=== PATIENT | male | born 1965 | race Caucasian/White ===

== ENCOUNTER 2017-10-18 18:49 | Observation (INO) ==
[2017-10-18] MEDS ORDERED: 0.9 % Sodium Chloride 1,000 ML ONE (18:54)
[2017-10-18] MEDS ORDERED: 0.9 % Sodium Chloride 1,000 ML IVC ONE (18:54)
--- NOTE | 2017-10-18 19:09 | Emergency Department Note ---
Disposition Clinical Impression: TIA (transient ischemic attack) Hypertension Qualifiers: Hypertension type: unspecified Qualified Code(s): I10 - Essential (primary) hypertension Disposition: Admitted As Inpatient Condition: Good Referrals: NONE,PCP [Primary Care Provider] - Forms: ED Satisfaction Letter Time of Disposition: 23:30 Dizziness HPI - General Chief Complaint: ED Dizziness Stated Complaint: dizziness Time Seen by Provider: 10/18/17 18:54 Source: patient, family Mode of arrival: private vehicle Limitations: physical limitation Nursing Notes Reviewed: Yes Vital Signs Reviewed: Yes - History of Present Illness HPI Narrative: 51-year-old male history of hypertension on Plavix, prior reported intracranial bleed who presents to the ER with a complaint of dizziness, lightheadedness as well as diaphoresis. History is also to a friend. They were out doing manual labor. The friend went to get him something to drink. He came back minutes later at 6:40 PM and found the patient on the ground. States that he was somewhat responsive at that time. He was pale and breaking out into a sweat. He put him in his truck and brought him here for evaluation. Upon arrival the patient is alert and oriented 3 does appear pale and diaphoretic. He voices that he has dizziness as well as lightheadedness. He denies any chest pain or shortness of breath. No headache or visual changes. He states that he believes that 3 vessels ruptured in his brain when he had a stroke previously. This is not like his similar presentation. No other complaints. Pt Subjective Complaint: dizziness, lightheadedness Onset (ago): Just [employer] Timing: sudden onset Description: lightheadedness History of similar episodes: No History of trauma: No Severity: severe Improves with: nothing Worsens with: nothing - Related Data Allergies Allergy/AdvReac Type Severity Reaction Status Date / Time No Known Allergies Allergy Verified 10/18/17 19:30 All systems ED: reviewed and negative except as stated. Constitutional: Denies: fever Cardiovascular: Denies: chest pain Respiratory: Denies: dyspnea Gastrointestinal: Denies: nausea, vomiting Musculoskeletal: Denies: neck pain Neurological: Reports: paresthesias (Left face). Denies: headache Past Medical History - Past Medical History Attestation: Yes The following information was validated with the patient. Source: patient Medical history: Reports: CVA, hypertension Psychiatric history: Reports: no psych history - Social History Smoking Status: Current every day smoker Smokeless Tobacco Status: No Alcohol use: Reports: none Drug use: Reports: none Physical Exam - General Limitations: physical limitation General appearance: other (Diaphoretic, pale) - Eye Eye exam: Present: normal appearance, PERRL, EOMI - ENT ENT exam: normal exam - Neck Neck exam: Present: normal inspection, full ROM - Chest Chest inspection: Present: normal inspection, symmetric chest wall rise - Respiratory Respiratory exam: Present: normal lung sounds bilaterally - Cardiovascular Cardiovascular exam: Present: regular rate, normal rhythm, normal heart sounds - Abdominal Exam Abdominal exam: Present: soft, Non-Tender. Absent: tenderness, distention, rigidity - Extremities Exam Extremities exam: Present: normal inspection, full ROM - Expanded Upper Extremity Exam Shoulder exam: Present: normal inspection, full ROM Arm exam: Present: normal inspection, full ROM Elbow exam: Present: normal inspection, full ROM Forearm/Wrist exam: Present: normal inspection, full ROM Hand exam: Present: normal inspection, full ROM Vascular exam: Normal: radial pulse - Expanded Lower Extremity Exam Hip/Pelvis exam: Present: normal inspection, full ROM Upper leg exam: Present: normal inspection, full ROM Knee exam: Present: normal inspection, full ROM Lower leg exam: Present: normal inspection, full ROM Ankle exam: Present: normal inspection, full ROM Foot/toe exam: Present: normal inspection, full ROM Neurovascular/Tendon exam: Absent: motor deficit, sensory deficit - Neurological Exam Neurological exam: Present: alert, oriented X3, CN II-XII intact (With the exception of paresthesias to the left cranial nerve V distribution). Absent: motor sensory deficit - Expanded Neurological Exam Patient oriented to: Present: person, place, time Speech: Present: fluid speech Cranial nerves: EOM function (II, III, IV, ): Normal, facial sensation (V): Abnormal Left, spinal accessory function (XI): Normal, tongue deviation (XII): Normal Cerebellar function: finger to nose: Normal Motor strength - LUE: 5/5 Motor strength - RUE: 5/5 Motor strength - LLE: 5/5 Motor strength - RLE: 5/5 Sensory exam upper extremity: light touch: Normal Sensory exam lower extremity: light touch: Normal Coma Scale Eye Opening: Spontaneous Coma Scale Motor Response: Obeys Commands Coma Scale Verbal Response: Oriented Coma Scale Total: 15 - Skin Skin exam: Present: warm, dry Course Course Narrative: Patient seen and examined. Vital signs reviewed. He is also noted to have a left facial droop with some left facial paresthesias. Stroke alert called. EKG obtained. Glucose 173 on presentation. Noted to be hypertensive 170/110. Plan for CT imaging, EKG, labs, discussion with stroke neurology - Reevaluation(s) Reevaluation #1: Patient remained hypertensive. Patient given a dose of labetalol. Reevaluation #2: CTA negative. Discussed with patient. He remains hypertensive. Dose of hydralazine ordered. - Consultations Consultation #1: Case discussed with the [facility] stroke neurologist. Unable to use the lower lot. They did recommend TPA if the patient was willing. I discussed this with the patient and he chose to forego TPA and pursue imaging. Neurology recommended an angiogram of the head and neck. Vital Signs Temperature 97.8 F 10/18/17 18:50 Pulse Rate 71 10/18/17 18:50 Respiratory Rate 15 10/18/17 18:50 Blood Pressure 176/112 10/18/17 18:50 O2 Sat by Pulse Oximetry 97 10/18/17 18:50 Temperature 97.8 F 10/18/17 18:50 Pulse Rate 57 10/18/17 23:12 Respiratory Rate 16 10/18/17 23:12 Blood Pressure 161/97 10/18/17 23:12 O2 Sat by Pulse Oximetry 100 10/18/17 23:12 Oxygen Delivery Oxygen Delivery Room Air Dizziness - MDM Narrative Medical decision making narrative: 51-year-old male presents with diaphoresis, altered mental status as well as left facial droop. Abrupt onset of symptoms. Prior history of CVA. Patient was discussed with the [facility] stroke neurology. Given his prior history of bleeding and minimal symptoms shared decision making conversation was had and the patient elected to hold TPA. CT angiogram does not show any focal stenosis or thrombus. She was hypertensive here during his stay in reports compliance with his medications. Imaging labs reviewed. Urine drug screen is positive for amphetamines. Patient is admitted to the hospital service for neurologic workup. - Lab Data Lab results reviewed: Yes I reviewed the patient's lab results. Result diagrams: 10/18/17 18:54 10/18/17 18:54 Lab Results 10/18/17 10/18/17 10/18/17 Range/Units 18:54 18:54 18:54 WBC 10.6 (4.3-11.1) K/mcL RBC 4.82 (4.19-5.50) M/mcL Hgb 15.2 (12.9-16.9) g/dL Hct 43.9 (37.5-50.1) % MCV 91.1 (83.0-100.0) fL MCH 31.5 (28.0-33.3) pg MCHC 34.6 (31.6-35.5) g/dL RDW 13.5 (11.5-14.5) % Plt Count 244 (140-400) K/mcL MPV 9.7 (9.4-12.4) fL Immature Gran % 0.3 (0-4) % Seg Neutrophils % 59.0 % Lymphocytes % 31.0 % Monocytes % 7.9 % Eosinophils % 1.3 % Basophils % 0.5 % Neutrophils # 6.2 (1.6-8.9) K/mcL Lymphocytes # 3.3 (0.6-4.6) K/mcL Monocytes # 0.8 (0.0-1.3) K/mcL Eosinophils # 0.1 (0.0-0.6) K/mcL Basophils # 0.1 (0.0-0.2) K/mcL PT 11.5 (9.4-12.1) Seconds INR 1.0 APTT 27.9 (26.0-36.0) Seconds Sodium 139 (136-145) mEq/L Potassium 3.7 (3.5-5.1) mEq/L Chloride 108 H (98-107) mEq/L Carbon Dioxide 25 (23-29) mEq/L BUN 13 (6-20) mg/dL Creatinine 0.88 (0.70-1.30) mg/dL Est GFR ( Amer) > 60 (> 60) Est GFR (Non-Af Amer) > 60 (> 60) BUN/Creatinine Ratio 15 (6-26) Glucose 139 H (70-105) mg/dL Calculated Osmolality 290 (280-300) Calcium 8.7 (8.6-10.3) mg/dL Total Bilirubin 0.6 (0.3-1.0) mg/dL Direct Bilirubin 0.1 (0.0-0.2) mg/dL Indirect Bilirubin 0.5 (0.0-1.2) mg/dL AST 11 L (13-39) Units/L ALT 9 (7-52) Units/L Alkaline Phosphatase 87 (34-104) Units/L Troponin I < 0.03 (< 0.04) ng/mL Serum Total Protein 6.0 L (6.4-8.9) g/dL Albumin 4.0 (3.5-5.7) g/dL Globulin 2.0 L (2.4-3.5) g/dL Albumin/Globulin Ratio 2.0 (1.1-2.2) Urine Color (Yellow) Urine Clarity (Clear) Urine pH (5.0-8.0) pH Units Ur Specific [place] (1.010-1.025) Urine Protein (Neg-Trace) mg/dL Urine Glucose (UA) (Normal) mg/dL Urine Ketones (Negative) mg/dL Urine Blood (Negative) Urine Nitrite (Negative) Urine Bilirubin (Negative) Urine Urobilinogen (Normal) mg/dL Ur Leukocyte Esterase (Negative) Ur Culture Indicated? (NO) Urine Opiates Screen (Yzuwea=031) ng/mL Ur Barbiturates Screen (Zmxpfv=008) ng/mL Ur Phencyclidine Scrn (Cutoff=25) ng/mL Ur Amphetamines Screen (Tpnqqa=9350) ng/mL U Benzodiazepines Scrn (Uqmvhl=180) ng/mL Urine Cocaine Screen (Cutoff= 300) ng/mL U Marijuana (THC) Screen (Cutoff = 50) ng/mL Ur Drug Screen Interp Ethyl Alcohol (Less than 10) mg/dL 10/18/17 10/18/17 10/18/17 Range/Units 18:59 22:22 22:22 WBC (4.3-11.1) K/mcL RBC (4.19-5.50) M/mcL Hgb (12.9-16.9) g/dL Hct (37.5-50.1) % MCV (83.0-100.0) fL MCH (28.0-33.3) pg MCHC (31.6-35.5) g/dL RDW (11.5-14.5) % Plt Count (140-400) K/mcL MPV (9.4-12.4) fL Immature Gran % (0-4) % Seg Neutrophils % % Lymphocytes % % Monocytes % % Eosinophils % % Basophils % % Neutrophils # (1.6-8.9) K/mcL Lymphocytes # (0.6-4.6) K/mcL Monocytes # (0.0-1.3) K/mcL Eosinophils # (0.0-0.6) K/mcL Basophils # (0.0-0.2) K/mcL PT (9.4-12.1) Seconds INR APTT (26.0-36.0) Seconds Sodium (136-145) mEq/L Potassium (3.5-5.1) mEq/L Chloride (98-107) mEq/L Carbon Dioxide (23-29) mEq/L BUN (6-20) mg/dL Creatinine (0.70-1.30) mg/dL Est GFR ( Amer) (> 60) Est GFR (Non-Af Amer) (> 60) BUN/Creatinine Ratio (6-26) Glucose (70-105) mg/dL Calculated Osmolality (280-300) Calcium (8.6-10.3) mg/dL Total Bilirubin (0.3-1.0) mg/dL Direct Bilirubin (0.0-0.2) mg/dL Indirect Bilirubin (0.0-1.2) mg/dL AST (13-39) Units/L ALT (7-52) Units/L Alkaline Phosphatase (34-104) Units/L Troponin I (< 0.04) ng/mL Serum Total Protein (6.4-8.9) g/dL Albumin (3.5-5.7) g/dL Globulin (2.4-3.5) g/dL Albumin/Globulin Ratio (1.1-2.2) Urine Color Yellow (Yellow) Urine Clarity Clear (Clear) Urine pH 7.5 (5.0-8.0) pH Units Ur Specific [place] > 1.030 H (1.010-1.025) Urine Protein Negative (Neg-Trace) mg/dL Urine Glucose (UA) Normal (Normal) mg/dL Urine Ketones Trace H (Negative) mg/dL Urine Blood Negative (Negative) Urine Nitrite Negative (Negative) Urine Bilirubin Negative (Negative) Urine Urobilinogen Normal (Normal) mg/dL Ur Leukocyte Esterase Negative (Negative) Ur Culture Indicated? NO (NO) Urine Opiates Screen Negative (Cfwcon=034) ng/mL Ur Barbiturates Screen Negative (Pfbblr=796) ng/mL Ur Phencyclidine Scrn Negative (Cutoff=25) ng/mL Ur Amphetamines Screen Positive H (Owivns=7889) ng/mL U Benzodiazepines Scrn Negative (Wxndie=745) ng/mL Urine Cocaine Screen Negative (Cutoff= 300) ng/mL U Marijuana (THC) Screen Negative (Cutoff = 50) ng/mL Ur Drug Screen Interp See Below Ethyl Alcohol < 10 (Less than 10) mg/dL - Radiology Data Radiology results reviewed: Yes I reviewed the patient's radiology results. Chest X-Ray 10/18/17 18:54 IMPRESSION: No acute process. D/ / Robbi Garcia MD / Robbi Garcia MD Interpreting Provider: Robbi Garcia MD Head CT 10/18/17 18:59 IMPRESSION: 1. No acute intracranial abnormality. Critical results were called by Dr. Tushar Arce MD to Luis Braga on 10/18/2017 at 19:22. D/ / Tushar Arce MD / Tushar Arce MD Interpreting Provider: Tushar Arce MD Head CTA 10/18/17 19:31 IMPRESSION: No flow-limiting stenosis of the cervical carotid or vertebral arteries. No intracranial flow-limiting stenosis. D/ / 10/18/2017 20:52:10 Alirio Coates MD / audrey Interpreting Provider: Alirio Coates MD Neck CTA 10/18/17 19:31 IMPRESSION: No flow-limiting stenosis of the cervical carotid or vertebral arteries. No intracranial flow-limiting stenosis. D/ / 10/18/2017 20:52:10 Alirio Coates MD / audrey Interpreting Provider: Alirio Coates MD - EKG Data EKG attestation: Yes I reviewed and interpreted this EKG. EKG results narrative: EKG demonstrates normal sinus rhythm rate 66 bpm. Normal axis. Normal intervals. Normal R-wave progression. There are larger T waves in the anterior and lateral leads. No gross ST elevation or depressions. No acute ischemic findings. Evelia - Evelia Situation: Demographics, MOA Background: Presenting Complaint, Relevant PMH, Meds, & Allergies Assessment: Vital Signs, Course and respsone to treatment, Exam Concerns, Patient/Family Expectation, Pertinant Lab Results Recommendation: Barrier(s) to disposition, Recommendation based on pending studies, treatments, or consults Evelia Report Given to: Dr. Laverne Altamirano Repor Time: 23:29
[2017-10-18 19:28] LABS: Basophils # 0.1 K/mcL (0.0-0.2); Basophils % 0.5 %; Eosinophils # 0.1 K/mcL (0.0-0.6); Eosinophils % 1.3 %; Hematocrit 43.9 % (37.5-50.1); Hemoglobin 15.2 g/dL (12.9-16.9); Immature Granulocytes % 0.3 % (0-4); Lymphocytes # 3.3 K/mcL (0.6-4.6); Mean Corpuscular HGB Conc 34.6 g/dL (31.6-35.5); Mean Corpuscular Hemoglobin 31.5 pg (28.0-33.3); Mean Corpuscular Volume 91.1 fL (83.0-100.0); Mean Platelet Volume 9.7 fL (9.4-12.4); Monocytes # 0.8 K/mcL (0.0-1.3); Monocytes % 7.9 %; Neutrophils # 6.2 K/mcL (1.6-8.9); Platelet Count 244 K/mcL (140-400); Red Blood Count 4.82 M/mcL (4.19-5.50); Red Cell Distribution Width 13.5 % (11.5-14.5)
[2017-10-18] MEDS ORDERED: Isovue-370 500 ML INFUS..BTL IV ONE (19:31)
[2017-10-18 19:33] LABS: Prothrombin Time 11.5 Seconds (9.4-12.1)
[2017-10-18 19:36] LABS: Activated Partial Thrombo Time 27.9 Seconds (26.0-36.0)
[2017-10-18 19:49] LABS: BUN/Creatinine Ratio 15 (6-26); Blood Urea Nitrogen 13 mg/dL (6-20); Calcium 8.7 mg/dL (8.6-10.3); Carbon Dioxide 25 mEq/L (23-29); Chloride 108 mEq/L (98-107); Glucose 139 mg/dL (70-105); Osmolality,Calculated 290 (280-300); Potassium 3.7 mEq/L (3.5-5.1); Sodium 139 mEq/L (136-145); eGFR For Non-African Americans > 60 (> 60)
[2017-10-18 19:50] LABS: Troponin I < 0.03 ng/mL (< 0.04)
[2017-10-18 21:48] LABS: Alanine Aminotransferase 9 Units/L (7-52); Alkaline Phosphatase 87 Units/L (34-104); Aspartate Amino Transferase 11 Units/L (13-39); Bilirubin,Direct 0.1 mg/dL (0.0-0.2); Bilirubin,Indirect 0.5 mg/dL (0.0-1.2); Bilirubin,Total 0.6 mg/dL (0.3-1.0)
[2017-10-18] MEDS ORDERED: *HR* Labetalol 20 MG/4 ML SYRINGE IVP ONE (22:18)
--- NOTE | 2017-10-18 22:26 | Emergency Department Note ---
Disposition Clinical Impression: TIA (transient ischemic attack), Hypertension Disposition: Admitted As Inpatient Condition: Good Referrals: NONE,PCP [Primary Care Provider] - Forms: ED Satisfaction Letter General Adult HPI - General Chief complaint: ED Dizziness Stated complaint: dizziness Time Seen by Provider: 10/18/17 18:54 Source: patient, family Mode of arrival: private vehicle Limitations: physical limitation Nursing Notes Reviewed: Yes Vital Signs Reviewed: Yes - History of Present Illness Pain Scale: 0 - Related Data Allergies Allergy/AdvReac Type Severity Reaction Status Date / Time No Known Allergies Allergy Verified 10/18/17 19:30 Constitutional: Denies: fever Cardiovascular: Denies: chest pain Respiratory: Denies: dyspnea Gastrointestinal: Denies: nausea, vomiting Musculoskeletal: Denies: neck pain Neurological: Reports: paresthesias (Left face). Denies: headache Past Medical History - Past Medical History Medical history: Reports: CVA, hypertension Psychiatric history: Reports: no psych history - Social History Smoking Status: Current every day smoker Smokeless Tobacco Status: No Alcohol use: Reports: none Drug use: Reports: none Physical Exam - General Limitations: physical limitation General appearance: other (Diaphoretic, pale) Course Vital Signs Temperature 97.8 F 10/18/17 18:50 Pulse Rate 71 10/18/17 18:50 Respiratory Rate 15 10/18/17 18:50 Blood Pressure 176/112 10/18/17 18:50 O2 Sat by Pulse Oximetry 97 10/18/17 18:50 Temperature 97.8 F 10/18/17 18:50 Pulse Rate 57 10/18/17 23:12 Respiratory Rate 16 10/18/17 23:12 Blood Pressure 161/97 10/18/17 23:12 O2 Sat by Pulse Oximetry 100 10/18/17 23:12 Oxygen Delivery Oxygen Delivery Room Air Medical Decision Making - Lab Data Lab results reviewed: Yes I reviewed the patient's lab results. Result diagrams: 10/18/17 18:54 10/18/17 18:54 Lab Results 10/18/17 10/18/17 10/18/17 Range/Units 18:54 18:54 18:54 WBC 10.6 (4.3-11.1) K/mcL RBC 4.82 (4.19-5.50) M/mcL Hgb 15.2 (12.9-16.9) g/dL Hct 43.9 (37.5-50.1) % MCV 91.1 (83.0-100.0) fL MCH 31.5 (28.0-33.3) pg MCHC 34.6 (31.6-35.5) g/dL RDW 13.5 (11.5-14.5) % Plt Count 244 (140-400) K/mcL MPV 9.7 (9.4-12.4) fL Immature Gran % 0.3 (0-4) % Seg Neutrophils % 59.0 % Lymphocytes % 31.0 % Monocytes % 7.9 % Eosinophils % 1.3 % Basophils % 0.5 % Neutrophils # 6.2 (1.6-8.9) K/mcL Lymphocytes # 3.3 (0.6-4.6) K/mcL Monocytes # 0.8 (0.0-1.3) K/mcL Eosinophils # 0.1 (0.0-0.6) K/mcL Basophils # 0.1 (0.0-0.2) K/mcL PT 11.5 (9.4-12.1) Seconds INR 1.0 APTT 27.9 (26.0-36.0) Seconds Sodium 139 (136-145) mEq/L Potassium 3.7 (3.5-5.1) mEq/L Chloride 108 H (98-107) mEq/L Carbon Dioxide 25 (23-29) mEq/L BUN 13 (6-20) mg/dL Creatinine 0.88 (0.70-1.30) mg/dL Est GFR ( Amer) > 60 (> 60) Est GFR (Non-Af Amer) > 60 (> 60) BUN/Creatinine Ratio 15 (6-26) Glucose 139 H (70-105) mg/dL Calculated Osmolality 290 (280-300) Calcium 8.7 (8.6-10.3) mg/dL Total Bilirubin 0.6 (0.3-1.0) mg/dL Direct Bilirubin 0.1 (0.0-0.2) mg/dL Indirect Bilirubin 0.5 (0.0-1.2) mg/dL AST 11 L (13-39) Units/L ALT 9 (7-52) Units/L Alkaline Phosphatase 87 (34-104) Units/L Troponin I < 0.03 (< 0.04) ng/mL Serum Total Protein 6.0 L (6.4-8.9) g/dL Albumin 4.0 (3.5-5.7) g/dL Globulin 2.0 L (2.4-3.5) g/dL Albumin/Globulin Ratio 2.0 (1.1-2.2) Urine Color (Yellow) Urine Clarity (Clear) Urine pH (5.0-8.0) pH Units Ur Specific Gould (1.010-1.025) Urine Protein (Neg-Trace) mg/dL Urine Glucose (UA) (Normal) mg/dL Urine Ketones (Negative) mg/dL Urine Blood (Negative) Urine Nitrite (Negative) Urine Bilirubin (Negative) Urine Urobilinogen (Normal) mg/dL Ur Leukocyte Esterase (Negative) Ur Culture Indicated? (NO) Urine Opiates Screen (Qhkvsi=484) ng/mL Ur Barbiturates Screen (Iktjtb=107) ng/mL Ur Phencyclidine Scrn (Cutoff=25) ng/mL Ur Amphetamines Screen (Hobdjk=2507) ng/mL U Benzodiazepines Scrn (Afjnen=719) ng/mL Urine Cocaine Screen (Cutoff= 300) ng/mL U Marijuana (THC) Screen (Cutoff = 50) ng/mL Ur Drug Screen Interp Ethyl Alcohol (Less than 10) mg/dL 10/18/17 10/18/17 10/18/17 Range/Units 18:59 22:22 22:22 WBC (4.3-11.1) K/mcL RBC (4.19-5.50) M/mcL Hgb (12.9-16.9) g/dL Hct (37.5-50.1) % MCV (83.0-100.0) fL MCH (28.0-33.3) pg MCHC (31.6-35.5) g/dL RDW (11.5-14.5) % Plt Count (140-400) K/mcL MPV (9.4-12.4) fL Immature Gran % (0-4) % Seg Neutrophils % % Lymphocytes % % Monocytes % % Eosinophils % % Basophils % % Neutrophils # (1.6-8.9) K/mcL Lymphocytes # (0.6-4.6) K/mcL Monocytes # (0.0-1.3) K/mcL Eosinophils # (0.0-0.6) K/mcL Basophils # (0.0-0.2) K/mcL PT (9.4-12.1) Seconds INR APTT (26.0-36.0) Seconds Sodium (136-145) mEq/L Potassium (3.5-5.1) mEq/L Chloride (98-107) mEq/L Carbon Dioxide (23-29) mEq/L BUN (6-20) mg/dL Creatinine (0.70-1.30) mg/dL Est GFR ( Amer) (> 60) Est GFR (Non-Af Amer) (> 60) BUN/Creatinine Ratio (6-26) Glucose (70-105) mg/dL Calculated Osmolality (280-300) Calcium (8.6-10.3) mg/dL Total Bilirubin (0.3-1.0) mg/dL Direct Bilirubin (0.0-0.2) mg/dL Indirect Bilirubin (0.0-1.2) mg/dL AST (13-39) Units/L ALT (7-52) Units/L Alkaline Phosphatase (34-104) Units/L Troponin I (< 0.04) ng/mL Serum Total Protein (6.4-8.9) g/dL Albumin (3.5-5.7) g/dL Globulin (2.4-3.5) g/dL Albumin/Globulin Ratio (1.1-2.2) Urine Color Yellow (Yellow) Urine Clarity Clear (Clear) Urine pH 7.5 (5.0-8.0) pH Units Ur Specific [place] > 1.030 H (1.010-1.025) Urine Protein Negative (Neg-Trace) mg/dL Urine Glucose (UA) Normal (Normal) mg/dL Urine Ketones Trace H (Negative) mg/dL Urine Blood Negative (Negative) Urine Nitrite Negative (Negative) Urine Bilirubin Negative (Negative) Urine Urobilinogen Normal (Normal) mg/dL Ur Leukocyte Esterase Negative (Negative) Ur Culture Indicated? NO (NO) Urine Opiates Screen Negative (Nxneof=072) ng/mL Ur Barbiturates Screen Negative (Xrcucb=161) ng/mL Ur Phencyclidine Scrn Negative (Cutoff=25) ng/mL Ur Amphetamines Screen Positive H (Ojpali=9761) ng/mL U Benzodiazepines Scrn Negative (Tdivvz=136) ng/mL Urine Cocaine Screen Negative (Cutoff= 300) ng/mL U Marijuana (THC) Screen Negative (Cutoff = 50) ng/mL Ur Drug Screen Interp See Below Ethyl Alcohol < 10 (Less than 10) mg/dL - Radiology Data Radiology results reviewed: Yes I reviewed the patient's radiology results. Chest X-Ray 10/18/17 18:54 IMPRESSION: No acute process. D/ / Robbi Garcia MD / Robbi Garcia MD Interpreting Provider: Robbi Garcia MD Head CT 10/18/17 18:59 IMPRESSION: 1. No acute intracranial abnormality. Critical results were called by Dr. Tushar Arce MD to Luis Braga on 10/18/2017 at 19:22. D/ / Tushar Arce MD / Tushar Arce MD Interpreting Provider: Tushar Arce MD Head CTA 10/18/17 19:31 IMPRESSION: No flow-limiting stenosis of the cervical carotid or vertebral arteries. No intracranial flow-limiting stenosis. D/ / 10/18/2017 20:52:10 Alirio Coates MD / audrey Interpreting Provider: Alirio Coates MD Neck CTA 10/18/17 19:31 IMPRESSION: No flow-limiting stenosis of the cervical carotid or vertebral arteries. No intracranial flow-limiting stenosis. D/ / 10/18/2017 20:52:10 Alirio Coates MD / audrey Interpreting Provider: Alirio Coates MD - EKG Data EKG #1 EKG attestation: Yes I reviewed and interpreted this EKG. EKG results narrative: EKG shows a normal sinus rhythm with ventricular rate is 66. No ST segment elevation or depression. No arrhythmia or ectopy. Normal EKG. Critical Care Time Critical Care Time: Yes Total Critical Care Time: 40 Attestation: Critical care performed: Time is exclusive of separately billable procedures. Time includes: direct patient care, patient reassessment, coordination of patient care, interpretation of data (laboratory data, radiology data, and respiratory data), review of patient's medical records, medical consultation and documentation of patient care. Procedures included in critical care time: Procedures excluded from critical care time: Attestation Statement - Attestation Attestation: I, Haris Sheppard MD, personally evaluated this patient and discussed their management with the resident physician. I reviewed the resident's note and agree with the documented findings, medical decision making, and plan of care. 51-year-old male who presents to the emergency department by private vehicle with a complaint of altered mental status. Patient's friend brought him in reported that he had been with him for about the last hour and a half the patient was fine. They were doing some work outside and the friend left to go get them something to drink and was gone for about 5 minutes. When he came back he states the patient was on the ground and was unresponsive. He had to shake him to arouse him. The patient then was very drowsy and seemed disoriented. He was very pale and diaphoretic. No complaints. Patient has a history of hypertension. His friend checked his blood pressure and it was in the range of 153/105. Patient has a prior history of a stroke 3 years ago which he states that his only symptoms with the stroke was a headache. No weakness or numbness of the extremities. He reports that he had bleeding from 3 blood vessels that ruptured. He denies headache at this time. He denies chest pain or shortness of breath or palpitations. He does complain that the left side of his face feels a little numb and tingly. On examination patient is a well-developed well-nourished male. He is pale and diaphoretic. Somewhat drowsy but responds to verbal stimuli. There is mild left facial droop but no other focal neurological findings. Equal field appraiser strength bilaterally. Normal speech. Breath sounds are clear and equal bilaterally. Heart regular rate and rhythm. Abdomen soft and nontender with normal bowel sounds. A stroke alert was called and patient had an emergency head CT which was negative. Dr. Braga discussed the case with the [facility] stroke neurologist on the phone as our stroke robot is currently not functioning. She felt that it would be okay for the patient to get TPA and the decision was up to the patient. Patient declined. A CTA of the head and neck was obtained and negative. Patient remained stable throughout his stay in the emergency department and vital signs remained stable other than hypertension. The hospitalist, Dr. Galloway, was consulted and accepted admission of the patient.
[2017-10-18 22:29] LABS: Bilirubin,Urine Negative (Negative); Blood,Urine Negative (Negative); Clarity,Urine Clear (Clear); Color,Urine Yellow (Yellow); Glucose,Urine (UA) Normal (Normal); Ketones,Urine Trace mg/dL (Negative); Leukocyte Esterase,Urine Negative (Negative); Nitrite,Urine Negative (Negative); PH,Urine 7.5 pH Units (5.0-8.0); Protein,Urine Negative (Neg-Trace); Specific Gravity,Urine > 1.030 (1.010-1.025); Urobilinogen,Urine Normal (Normal)
[2017-10-18 22:46] LABS: Amphetamine Screen,Urine Positive ng/mL (Cutoff=1000); Barbiturate Screen,Urine Negative ng/mL (Cutoff=200); Benzodiazepines Screen,Urine Negative ng/mL (Cutoff=200); Cannabinoid Screen,Urine Negative ng/mL (Cutoff = 50); Cocaine Screen,Urine Negative ng/mL (Cutoff= 300); Opiate Screen,Urine Negative ng/mL (Cutoff=300); Phencyclidine Screen,Urine Negative ng/mL (Cutoff=25)
[2017-10-18] MEDS ORDERED: Aspirin 81 MG TAB.CHEW PO ONE (23:18)
[2017-10-18] MEDS ORDERED: Naloxone 0.4 MG/ML INJ IVP PRN (23:35)
[2017-10-19 00:34] LABS: Chol/HDL Ratio 1.9 (0-4.9); Cholesterol 83 mg/dL (< 200); HDL Cholesterol 44 mg/dL (40-59); LDL Cholesterol,Calculated 26 mg/dL (0-99); Triglycerides 65 mg/dL (< 150)
--- NOTE | 2017-10-19 00:36 | Internal Med History&Physical ---
Date of Encounter: 10/19/17 Time of Encounter: 12:25 Internal Medicine - H&P: HPI Chief complaint: Syncopal episode today followed by weakness and facial droop History of present illness: Mr. Loza is a 51 year old male with pmh of CVA presenting with complaints of syncopal episode today followed by a left facial droop and left arm numbness and tingling. 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 When he came to, he was pale, diaphoretic and seemed very diaphoretic and drowsy. He was also noted to have a left facial drop and tingling of his left arm that have both since resolved. This history was obtained from ER records. On interviewing patient, he denies passing out, only admits to having been dizzy today. Also admits to the left facial droop and numbness. Denies any other acute symptoms such as fevers, chills or chest pain. In the ER, stroke alert was called and [facility] stroke neurologist was consulted who recommended TPA but patient declined. CTA head and neck all came back negative. Patient still complains of dizziness and will be admitted for further management Past Med Surg Social Fam HX - Past Medical History Medical history: CVA, hypertension Psychiatric history: no psych history - Social History Smoking Status: Current every day smoker Smokeless Tobacco Status: No Alcohol use: none Drug use: none Internal Medicine - H&P: Meds 3 Allergy/AdvReac Type Severity Reaction Status Date / Time No Known Allergies Allergy Verified 10/18/17 19:30 All Systems PM: A 10-system review of systems was performed and is negative for pertinent findings except as documented above in the HPI. - Constitutional Constitutional: no chills, no fever(s), no night sweats - EENT Eyes: no change in vision, no discharge, no pain, no photophobia Ears: no ear discharge, no ear pain, no tinnitus Nose, mouth and throat: no dysphagia, no nasal discharge, no neck pain, no sore throat - Cardiovascular Cardiovascular ROS IM: lightheadedness, no chest pain, no diaphoresis, no dyspnea, no palpitations, no syncope - Respiratory Respiratory: no cough, no dyspnea, no wheezing, no excessive phlegm production - Gastrointestinal Gastrointestinal: no abdominal pain, no diarrhea, no hematemesis, no hematochezia, no melena, no nausea, no vomiting - Musculoskeletal Musculoskeletal ROS IM: no numbness, no tingling - Integumentary Integumentary IM: no rash, no unusual bruising - Neurological Neurological ROS: confusion, tingling, no convulsions, no focal weakness, no numbness, no tremor(s) Additional comments: facial droop - Hematologic/Lymphatic Hematologic/Lymphatic: no easy bruising - Constitutional Vitals: Temp Pulse Resp BP Pulse Ox 97.8 F 59 16 166/111 100 10/18/17 18:50 10/18/17 23:37 10/18/17 23:37 10/18/17 23:37 10/18/17 23:12 - Head Head exam: Present: atraumatic, normocephalic - Eye Eye exam: Present: PERRL, conjuntiva pink, sclera anicteric Pupils: Present: PERRL - Neck Neck exam general surgery: Present: supple, trachea midline. Absent: lymphadenopathy - Respiratory Respiratory exam: Present: CTAB. Absent: accessory muscle use, rales, rhonchi, wheezes - Cardiovascular Cardiovascular exam: Present: RRR, +S1, +S2. Absent: diastolic murmur, gallop, rubs, systolic murmur - GI/Abdominal GI/Abdominal exam: Present: normal bowel sounds, soft, no peritoneal signs. Absent: distended, tenderness - Extremities Exam Extremities exam: Present: warm, radial pulses palpable and symmetrical. Absent : calf tenderness, cyanotic, pedal edema - Neurological Exam Neurological exam: Present: CN II-XII intact, oriented X3, no focal deficits. Absent: pronater drift, facial droop, speech deficit - Skin Skin exam: Present: dry, intact Internal Med - H&P Results - Labs CBC & Chem 7: 10/19/17 00:43 10/19/17 00:43 - Assessment and plan (1) TIA (transient ischemic attack) Current Visit: Yes Status: Acute Assessment and plan: TIA r/o acute CVA. Patient had a syncopal episode accompanied by neuro deficits post syncope with reported facial droop and left arm numbness and tingling which have since resolved. Pt also reports a history of CVA. Started on aspirin CT angio head and neck negative. Obtain 2d echo. Will give IV fluids (2) Syncope and collapse Current Visit: Yes Status: Acute Assessment and plan: Possibly vasovagal vs dehydration. Will give IV fluids (3) Hypertension Current Visit: Yes Status: Acute Assessment and plan: Hydralazine prn. consider adding amlodipine to regimen in am if BP remains persistently elevated Qualifiers: Hypertension type: essential hypertension Qualified Code(s): I10 - Essential (primary) hypertension (4) CVA (cerebral vascular accident) Current Visit: Yes Status: Acute Assessment and plan: [place] of CVA. Continue aspirin Qualifiers: Qualified Code(s): I63.9 - Cerebral infarction, unspecified (5) Amphetamine abuse Current Visit: Yes Status: Acute Assessment and plan: Query amphetamine abuse. Patient denies any illicit drugs, however utox positive for amphetamines. Supportive management (6) DVT prophylaxis Current Visit: Yes Status: Acute Assessment and plan: heparin sc - Time Spent With Patient Total time spent is greater than 50% in coordination of care (as documented) at patient's floor/unit and/or counseling patient:
[2017-10-19] MEDS ORDERED: Ondansetron 4 MG/2 ML VIAL IVP PRN (00:43)
[2017-10-19] MEDS: 0.9 % Sodium Chloride 1,000 ML IVC SCH ×2 (00:43→16:49)
[2017-10-19 00:53] LABS: Basophils % 0.3 %; Eosinophils % 0.1 %; Hematocrit 42.2 % (37.5-50.1); Hemoglobin 14.2 g/dL (12.9-16.9); Immature Granulocytes % 0.3 % (0-4); Lymphocytes # 1.5 K/mcL (0.6-4.6); Lymphocytes % 13.2 %; Mean Corpuscular HGB Conc 33.6 g/dL (31.6-35.5); Mean Corpuscular Hemoglobin 30.4 pg (28.0-33.3); Mean Corpuscular Volume 90.4 fL (83.0-100.0); Mean Platelet Volume 9.9 fL (9.4-12.4); Monocytes # 0.3 K/mcL (0.0-1.3); Monocytes % 2.2 %; Neutrophils # 9.8 K/mcL (1.6-8.9); Platelet Count 217 K/mcL (140-400); Red Blood Count 4.67 M/mcL (4.19-5.50); Red Cell Distribution Width 13.7 % (11.5-14.5); Segmented Neutrophils % 83.9 %
[2017-10-19 01:18] LABS: BUN/Creatinine Ratio 15 (6-26); Blood Urea Nitrogen 12 mg/dL (6-20); Calcium 8.7 mg/dL (8.6-10.3); Carbon Dioxide 24 mEq/L (23-29); Chloride 109 mEq/L (98-107); Glucose 137 mg/dL (70-105); Magnesium 1.8 mg/dL (1.6-2.6); Osmolality,Calculated 288 (280-300); Phosphorous 1.7 mg/dL (2.7-4.5); Potassium 3.8 mEq/L (3.5-5.1); Sodium 138 mEq/L (136-145); eGFR For Non-African Americans > 60 (> 60)
[2017-10-19] MEDS: *HR* Heparin 5,000 UNIT/ML VIAL SQ SCH ×2 (05:48→16:50)
[2017-10-19] MEDS: Aspirin 81 MG TAB.CHEW PO SCH (07:42)
--- NOTE | 2017-10-19 12:47 | Electrocardiograph Report ---
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
--- NOTE | 2017-10-19 16:19 | Event Note ---
Date of Encounter: 10/19/17 Time of Encounter: 16:09 Patient was seen earlier in the morning by hospitalist. 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 He was pale and diaphoretic and very drowsy. He was brought to the emergency room a stroke alert was called and [facility] stroke neurologist is consulted who recommended TPA the patient refused. CTA head neck AND back negative. Patient still complains of dizziness. MRI was ordered which did reveal acute infarct within the left dorsal eran no mass effect or midline shift as well as a prior lacunar infarct in the right periventricular white matter and the bilateral thalami. Echo completed- LVEF 60%. Mild left ventricular diastolic dysfunction. Normal right ventricular structure and function. Mild mitral regurgitation. Mild tricuspid regurgitation. No pulmonary hypertension. No evidence of PFO with agitated saline contrast. Neurology has been consulted. Aspirin and statin
--- NOTE | 2017-10-19 20:13 | Neurology - Consult Note ---
Date of Encounter: 10/19/17 Time of Encounter: 20:04 Assessment and Plan (1) Brainstem infarct, acute Current Visit: Yes Status: Acute Unfortunately Mr. Loza has experienced an acute pontine infarct. This infarct is definitely the result of a small vessel event caused by his severe hypertension. He is quite possible that the amphetamines contributed to this hypertension. He has had other previous cerebrovascular events due to hypertension, and was previously placed on medications to control this. He was also placed on antiplatelet therapy previously. He consciously made and ill- advised, autonomous decision to stop taking his blood pressure medication and his aspirin therapy. I did in fact call these matters to his attention. I warned him of the dangers of noncompliance which in his case could in fact lead to disability or even . I recommend normalizing his blood pressure tomorrow and restarting his aspirin therapy. Hopefully he will reestablish with a primary care provider and remain compliant. He will likely need some type of physical therapy and occupational therapy to strengthen his left arm and become more efficient with using it. Statin therapy will also be indicated here. I will reevaluate him at your request. History of Present Illness HPI: The chart was reviewed, the patient was seen and examined. Mr. Loza is a 51 year old male who is being seen for neurologic consultation secondary to an acute pontine infarct. Apparently he was fully engaged in physical work outside on the day of admission. Apparently he was with a friend who left to go get something to drink and came back about 5 minutes later to find Ken dumont. He states he did not pass out however he was dizzy and had difficulty with his balance. He did have some visual changes and admits to diplopia which is resolved. Apparently when he arrived here at the [facility] did an assessment in one to give him TPA however he declined. His blood pressure was 192/114 upon admission. He did have an MRI which does reveal an acute pontine infarct and several old right sided lacunar infarcts. Family he was hospitalized here a few years ago when he states like to care of him then for right sided stroke with left-sided weakness. He tells me that the weakness on the left side never completely resolved from the previous event. He also informs me that he was placed on antihypertensives and aspirin however for other reason he quit taking his medications about a year or so ago. He still smokes cigarettes. CTA scan of the brain and neck were both negative. Echocardiogram was negative as well. However, urine drug screen was positive for amphetamines which is of course very concerning and quite possibly the reason for this event. Past Med Surg Social Fam HX - Past Medical History Medical history: CVA, hypertension Psychiatric history: no psych history - Social History Smoking Status: Current every day smoker Smokeless Tobacco Status: No Alcohol use: none Drug use: none - Family History Mother Hx Family Cardiac Disorders: Yes (HTN) Medications and Allergies 3 Allergy/AdvReac Type Severity Reaction Status Date / Time No Known Allergies Allergy Verified 10/18/17 19:30 All Systems: The remainder of the systems were reviewed and are negative Review of Systems: The balance of the systems review is negative. Physical Examination - Vital Signs Vital Signs: Initial Vital Signs Temp Pulse Resp BP Pulse Ox 97.8 F 71 15 176/112 97 10/18/17 18:50 10/18/17 18:50 10/18/17 18:50 10/18/17 18:50 10/18/17 18:50 - Neurologic Detailed motor examination: other (Normal strength of the right upper and right lower extremity. There is 4/5 strength of the left deltoid, biceps, triceps, project safety manager strength, hip strength, quadriceps and hamstrings, anterior tibialis, gastrocnemius. There is also clumsiness of the left upper extremity with finger to nose testing.) Detailed sensory examination: other (There is hypoesthesia of the left face and left arm and left leg.) Reflex and gait examination: other (Deep tendon reflexes are 2 of the left upper and lower extremity and one of the right upper and lower extremities.) Mental Status Examination: awake, alert, oriented to person, oriented to place, oriented to time, follows commands appropriately, answers questions appropriately, no agnosia, no aphasia, no aproxia Cranial nerve examination: PERRL, EOMI, visual gaviria intact, corneal reflexes brisk symmetrically, mastication intact, no facial asymmetry is present, no dysarthria, hearing is intact symmetrically, tongue protrudes midline Ataxia: left upper extremity Results - Laboratory Findings CBC and BMP: 10/19/17 00:43 10/19/17 00:43 Abnormal lab findings: Abnormal lab results WBC 11.7 K/mcL (4.3-11.1) H 10/19/17 00:43 Neutrophils # 9.8 K/mcL (1.6-8.9) H 10/19/17 00:43 Chloride 109 mEq/L (98-107) H 10/19/17 00:43 Glucose 137 mg/dL (70-105) H 10/19/17 00:43 POC Glucose 143 mg/dL (70-99) H 10/18/17 18:51 Phosphorus 1.7 mg/dL (2.7-4.5) L 10/19/17 00:43 AST 11 Units/L (13-39) L 10/18/17 18:54 Serum Total Protein 6.0 g/dL (6.4-8.9) L 10/18/17 18:54 Globulin 2.0 g/dL (2.4-3.5) L 10/18/17 18:54 Ur Specific Stanton > 1.030 (1.010-1.025) H 10/18/17 22:22 Urine Ketones Trace mg/dL (Negative) H 10/18/17 22:22 Ur Amphetamines Screen Positive ng/mL ([id number]) H 10/18/17 22:22 Consult Discharge Plan - Plan Referrals: NONE,PCP [Primary Care Provider] -
[2017-10-20 04:26] LABS: Basophils % 0.4 %; Eosinophils # 0.1 K/mcL (0.0-0.6); Eosinophils % 0.9 %; Hematocrit 40.5 % (37.5-50.1); Immature Granulocytes % 0.2 % (0-4); Lymphocytes # 3.4 K/mcL (0.6-4.6); Mean Corpuscular HGB Conc 34.6 g/dL (31.6-35.5); Mean Corpuscular Hemoglobin 30.6 pg (28.0-33.3); Mean Corpuscular Volume 88.6 fL (83.0-100.0); Mean Platelet Volume 10.1 fL (9.4-12.4); Monocytes # 0.6 K/mcL (0.0-1.3); Monocytes % 6.2 %; Neutrophils # 5.6 K/mcL (1.6-8.9); Platelet Count 218 K/mcL (140-400); Red Blood Count 4.57 M/mcL (4.19-5.50); Red Cell Distribution Width 13.8 % (11.5-14.5); Segmented Neutrophils % 57.3 %
[2017-10-20 04:45] LABS: BUN/Creatinine Ratio 14 (6-26); Blood Urea Nitrogen 11 mg/dL (6-20); Calcium 8.3 mg/dL (8.6-10.3); Carbon Dioxide 22 mEq/L (23-29); Chloride 111 mEq/L (98-107); Glucose 103 mg/dL (70-105); Osmolality,Calculated 286 (280-300); Potassium 3.5 mEq/L (3.5-5.1); Sodium 138 mEq/L (136-145); eGFR For Non-African Americans > 60 (> 60)
[2017-10-20] MEDS: *HR* Heparin 5,000 UNIT/ML VIAL SQ SCH (06:35)
[2017-10-20] MEDS: Aspirin 81 MG TAB.CHEW PO SCH (08:56)
[2017-10-20 11:45] VITALS: BP 145/90
--- NOTE | 2017-10-20 14:25 | Discharge Summary ---
- NOTES TO OUTPATIENT PROVIDER Notes to Outpatient Provider: Recommend routine hospital follow-up Orders not resulted at time of discharge: Pending orders 10/19/17 14:32 Bedside Swallowing Evaluation [EVAL] Routine Date of Encounter: 10/20/17 Time of Encounter: 14:25 - Discharge Diagnosis (1) CVA (cerebral vascular accident) Priority: Primary Status: Acute Qualifiers: Qualified Code(s): I63.9 - Cerebral infarction, unspecified (2) Hypertension Priority: Primary Status: Acute Qualifiers: Hypertension type: essential hypertension Qualified Code(s): I10 - Essential (primary) hypertension (3) Syncope and collapse Priority: Primary Status: Acute (4) Amphetamine abuse Priority: Primary Status: Acute Hospital course: Mr. Loza is a 51 year old male with PMH HTN and previous CVA presented to [facility] on 10/18/2017 with mental status and dizziness. He was admitted for further workup and treatment. He was found to have an acute pontine infarct. Brain MRI showed an acute infarct within the left dorsal eran , no mass effect or midline shift. Head/neck CTA unremarkable. TTE with EF 60% , no evidence of PFO or cardiac source of emboli. Of note patient had self discontinued his antihypertensive medication and and aspirin and was also found to be using amphetamines, both of which likely contributed to acute CVA. He was evaluated by neurology who suspected infarct likely secondary to small vessel event caused by severe hypertension; neurology also recommended resuming ASA and BP medication. He was also evaluated by PT/OT who recommended outpatient physical therapy. He was discharged home on ASA, amlodipine and statin. Strongly encouraged medication compliance and cessation of illegal/recreational drugs. Discharge home in stable condition with outpatient follow-up. Discharge discussed with: patient (Seen and examined at bedside. Patient is new to me, information obtained from chart review and patient report. Patient says he feels better would like to discharge home today. Discussed with him at length the importance of medication compliance with his aspirin and BP medications. Advised him he is at high risk for CVA recurrence. He verbalizes understanding. Also strongly encourage cessation of illegal/recreational drugs. ) - Time Spent with Patient Total time spent providing and/or coordinating discharge services: - Discharge Medications Prescriptions: amLODIPine [Norvasc] 10 mg PO DAILY #60 tablet Aspirin [Lo-Dose Aspirin EC] 81 mg PO DAILY #30 tablet. Atorvastatin [Lipitor] 20 mg PO HS #30 tablet Home Medications: Aspirin [Lo-Dose Aspirin EC] 81 mg PO DAILY #30 tablet. 10/20/17 [Rx] Atorvastatin [Lipitor] 20 mg PO HS #30 tablet 10/20/17 [Rx] amLODIPine [Norvasc] 10 mg PO DAILY #60 tablet 10/20/17 [Rx] Allergies/Adverse Reactions: 3 Allergy/AdvReac Type Severity Reaction Status Date / Time No Known Allergies Allergy Verified 10/20/17 11:05 Date of admission: 10/18/17 23:33 Primary care physician: PCP NONE Consults: 10/19/17 14:22 Consult to Neurology [CONS] Routine Consulting Provider: Neu[facility] Reason for Consult: Acute infarct in left dorsal so Time Notified: 14:24 Call Completed: Yes 10/20/17 12:56 Consult to Occupational Therapy [CONS] Routine Comment: Evaluate, develop and implement POC Reason for Consult: TIA R/O Does patient have active BEDREST order?: No Is patient medically & hemodynamically stable?: Yes Patient assessed for mobility or mobilized this visit?: No Consult to Physical Therapy [CONS] Routine Comment: Evaluate, develop and implement POC Reason for Consult: TIA R/O Does patient have active BEDREST order?: No Is patient medically & hemodynamically stable?: Yes Patient assessed for mobility or mobilized this visit?: No Discharging clinician: Nathalie James Anticipated date of discharge: 10/20/17 - Constitutional Vitals: Temp Pulse Resp BP Pulse Ox 98.0 F 70 15 145/90 99 10/20/17 11:43 10/20/17 11:43 10/20/17 11:43 10/20/17 11:43 10/20/17 11:43 General appearance: Present: A&O X 3, pleasant, no acute distress - Head Head exam: Present: atraumatic, normocephalic - Eye Eye exam: Present: PERRL, conjuntiva pink, sclera anicteric Pupils: Present: PERRL - Neck Neck exam general surgery: Present: supple, trachea midline. Absent: lymphadenopathy - Respiratory Respiratory exam: Present: CTAB. Absent: accessory muscle use, rales, rhonchi, wheezes - Cardiovascular Cardiovascular exam: Present: RRR, +S1, +S2. Absent: diastolic murmur, gallop, rubs, systolic murmur - GI/Abdominal GI/Abdominal exam: Present: normal bowel sounds, soft, no peritoneal signs. Absent: distended, tenderness - Extremities Exam Extremities exam: Present: warm, radial pulses palpable and symmetrical. Absent : calf tenderness, cyanotic, pedal edema - Neurological Exam Neurological exam: Present: CN II-XII intact, oriented X3, strengths equal and symetr throughout (Left lower extremity weakness). Absent: pronater drift, facial droop, speech deficit - Skin Skin exam: Present: dry, intact - Patient Status Disposition: Home, Self-Care Condition: Good Functional capacity at discharge: independent ambulation Overall status at discharge: patient is progressing back to baseline - Discharge Instructions Instructions: Ischemic Stroke (DC), Chronic Hypertension (DC), Aspirin (By mouth), Amlodipine (By mouth), Atorvastatin (By mouth) Follow Up With: NONE,PCP [Primary Care Provider] - (Please call [phone] to find local physicians accepting new patients.) Ken Carrero, DO [Partnered Physician] - (Please call within 24 hours or next business day to see if you need to follow-up with neurology)
== END 2017-10-20 15:06 | disposition home or self-care (01) ==
LOC: EMEROO 18:49 → 3BNU 18:49
PROVIDERS: ADMIT Internal Medicine; ATTEND Internal Medicine